=== PATIENT | male | born 1940 | race Caucasian/White ===

== ENCOUNTER 2019-03-16 05:00 | Day surgery (SDC) | payer OTHER ==
[2019-03-15 12:25] LABS: HEMATOCRIT 41.8 % (42.0-54.0); MCH 31.3 pg (26.0-34.0); MCHC 33.5 g/dL (31.0-37.0); MCV 93.5 fL (80.0-100.0); MEAN PLATELET VOLUME 9.9 fL (7.4-10.4); RBC 4.47 10x6/uL (4.20-6.10); WBC 30.3 10x3/uL (4.8-10.8)
[~2019-03-16] VITALS: Ht 185.4 cm; Wt 99.8 kg
--- NOTE | ~2019-03-16 | OP ---
PATIENT NAME: YAMILKA BERG MEDICAL RECORD: [id number] :38 LOCATION:D.OPS ADMISSION DATE: SURGEON: TAM HARRIS DPM DATE OF OPERATION: 03/16/2019 PREOPERATIVE DIAGNOSES: 1. Bunion, right foot. 2. Gout, right first MPJ. 3. Gouty tophi, right first MPJ. POSTOPERATIVE DIAGNOSES: 1. Bunion, right foot. 2. Gout, right first MPJ. 3. Gouty tophi, right first MPJ. PROCEDURES: 1. Right first partial met head resection. 2. Removal of gouty tophi, right first MPJ. ANESTHESIA: General with local infiltrate utilizing lidocaine and Marcaine plain around the first ray. HEMOSTASIS: Right ankle tourniquet to 250 mmHg. PATHOLOGY: Specimen sent. PREOPERATIVE DETAILS: The patient was taken to the OR and placed on the operating table in a supine position, followed by induction of general anesthesia and infiltration of local anesthetic of approximately 15 cc total. The right extremity was then prepped and draped in usual aseptic technique, followed by exsanguination and inflation of tourniquet. A 15 blade was used to create a 4-cm linear incision over dorsal aspect of the first metatarsal, extended to the base of proximal phalanx to the hallux. The incision was deepened down through subcutaneous tissue to the joint capsule. A linear capsulotomy was performed and the head of the first metatarsal was delivered. A sagittal saw was used to resect the bunion. Wound was flushed. There was noted to be a large ossicle bone fragment medial to the first metatarsal head. It was removed with meticulous dissection. Following this, there was also a large gouty tophi deposit. It was also dissected and removed. Following removal, excellent reduction of the prominence was noted. Wound was flushed. The joint capsule was repaired with 2-0 Vicryl, the subcutaneous tissue with 4-0 Rapide, and the skin was closed with 4-0 Rapide in a subcuticular technique followed by Dermabond. Adaptic, 4 x 4, and Conform were used to dress the wound, followed by Coban. Tourniquet was deflated. POSTOPERATIVE DETAILS: The patient tolerated the procedure well and left the OR with vital signs stable and vascular status at preoperative levels. The patient was transported to recovery per anesthesia in stable condition. 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
[~2019-03-16 05:00] MED LIST: AMBIEN10 MG PO; FLUOROPLEX30 GM; LISINOPRIL-HCTZ1 T11 PO; RYTHMOL150 MG PO; STERAPRED DS 1210 MG PO; TUSSIONEX 5 ML S5 ML; ZITHROMAX TRI-500 MG
[2019-03-16 05:53] VITALS: BP 154/83; Ht 185.4 cm; Wt 99.8 kg
[2019-03-16 06:12] LABS: INR 0.95 (0.85-1.17); PROTIME 12.2 SECONDS (11.6-15.0)
--- NOTE | 2019-03-16 08:39 | NUR ---
0840 FL DIET SERVED INFORMATION ON GOUT PROVIDED TO READ.
--- NOTE | 2019-03-16 09:42 | NUR ---
7659 DC INSTS GIVEN VOICED UNDERSTANDING RX'S GIVEN VOICED UNDERSTANDING RELEASED IN WC WITH ESCORT.
== END 2019-03-16 09:42 | disposition home or self-care (01) ==
LOC: D.OPS 05:00 → D.PAN 07:00 → D.OPS 07:00
PROVIDERS: Anesthesiology; ATTEND Podiatrist
DX: M21.611 Bunion of right foot (principal); M1A.9XX0 Chronic gout, unspecified, without tophus (tophi)

== ENCOUNTER → 2020-07-16 08:22 | Outpatient (CLI) | payer OTHER ==
[2019-03-16 05:53] VITALS: BMI 29.0
== END | disposition home or self-care (01) ==
LOC: D.HCCARDIO 08:22
PROVIDERS: ATTEND Internal Medicine Cardiovascular Disease
DX: I20.9 Angina pectoris, unspecified (principal)